=== PATIENT | male | born 1990 | race Caucasian/White ===

== ENCOUNTER 2017-09-23 12:58 | Emergency (ER) | payer SELFPAY ==
[~2017-09-23] VITALS: Ht 185.4 cm; Wt 97.5 kg
[~2017-09-23 12:58] MED LIST: AUGMENTIN 875-1 EACH PO; FISH OIL CONCEN1 SGL PO; MULTI VITAMINS1 TAB PO
[2017-09-23 13:14] VITALS: BP 131/76
--- NOTE | 2017-09-23 14:21 | RADIOLOGY REPORT ---
EXAMINATION: XR SHOULDER, LEFT CLINICAL INFORMATION: Pain and swelling x1 week. Evaluate for fracture or dislocation. COMPARISON: Chest radiograph 01/18/2007. TECHNIQUE: Three views of the left shoulder. FINDINGS: There is no acute fracture or dislocation. The glenohumeral joint and the acromioclavicular joint are intact. The acromiohumeral interval is maintained. Soft tissues are unremarkable. Visualized portions of the left upper hemithorax reveal no abnormal finding. IMPRESSION: Normal left shoulder radiographs.
--- NOTE | 2017-09-23 15:35 | ED GENERAL ADULT ---
History of Present Illness General Chief Complaint: Upper Extremity Injury Stated Complaint: LEFT SHOULDER PAIN Source: patient Exam Limitations: no limitations Vital Signs & Intake/Output Vital Signs & Intake/Output Vital Signs Date Time Temp Pulse Resp B/P B/P Pulse O2 O2 Flow FiO2 Mean Ox Delivery Rate 09/23 1314 98.5 108 16 131/76 98 Room Air ED Intake and Output 09/24 0000 09/23 1200 Intake Total Output Total Balance Patient 215 lb Weight Weight Reported by Patient Measurement Method Allergies Coded Allergies: NO KNOWN ALLERGIES (03/10/13) Reconcile Medications Amoxicillin/Potassium Clav (Augmentin 875-125 Tablet) 875 MG-125 MG TABLET 1 TAB PO BID PRN DOG BITE Methocarbamol (Robaxin-750) 750 MG TABLET 1 TAB PO TID PRN PAIN Multivitamin (One Daily Multivitamin) 1 TAB TAB 1 TAB PO DAILY SUPPLEMENT ( Reported) OMEGA-3 FATTY ACIDS (Fish Oil Concentrate) 1 SGL SGL 1 SGL PO DAILY SUPPLEMENT (Reported) Triage Note: 27 Y/O MALE C/O L SHOULDER PAIN X 1 WEEK; STATES HE HAD A MASSAGE TUESDAY AND HAS HAD SYMPTOMS SINCE. STATES SHOULDER FEELS "SWOLLEN" AND PT REPORTS DIFFICULTY LIFTING ARM OVER HEAD DUE TO PAIN - THOUGH STATES MOBILITY IS IMPROVED SINCE ONSET. HAS BEEN TAKING IBUPROPHEN 800MG WITH SOME RELIEF, LAST DOSE NOON. XRAY ORDERED PER MD. Triage Nurses Notes Reviewed? yes Onset: Abrupt Duration: week(s): (1), better, changing over time, continues in ED Timing: single episode today Injury Environment: home Severity: moderate, severe Severity Numbers: 8 No Modifying Factors: none HPI: 27-year-old male with a history of anxiety presents for evaluation of pain in his left shoulder. Patient states that he went to get a massage about one week ago for a "knot" in his left shoulder. Patient states that after the massage he noticed that the knot was becoming painful. The pain is located diffusely in the left shoulder radiates to the left neck and left upper back. The pain is much worse with movement. He states that initially he could barely move the shoulder due to pain. His range of motion has improved significantly since first started but the pain is persisting. He's been taking ibuprofen without much improvement. There was no direct trauma. Patient does know he goes to the gym regularly but has not been there in several weeks due to the knot in his shoulder. He denies numbness or tingling shortness of breath. No fever or hemoptysis elbow pain and wrist pain. (Graham Miramontes) Past History Travel History Traveled to [place] past 21 day No Medical History Any Pertinent Medical History? see below for history Neurological: NONE EENT: NONE Cardiovascular: NONE Respiratory: NONE Gastrointestinal: NONE Hepatic: NONE Renal: NONE Musculoskeletal: NONE Psychiatric: anxiety Endocrine: NONE Blood Disorders: NONE Cancer(s): NONE SENIOR JAVA ENGINEER/Reproductive: NONE Surgical History Surgical History: KNEE SURGERY 07 Psychosocial History What is your primary language Faroese Tobacco Use: Never used Family History Hx Contributory? No (Graham Miramontes) Review of Systems Review of Systems Constitutional: Reports: no symptoms. EENTM: Reports: no symptoms. Respiratory: Reports: no symptoms. Cardiovascular: Reports: no symptoms. GI: Reports: no symptoms. Genitourinary: Reports: no symptoms. Musculoskeletal: Reports: see HPI, back pain, joint pain, muscle pain, muscle stiffness, neck pain. Skin: Reports: no symptoms. Neurological/Psychological: Reports: no symptoms. Hematologic/Endocrine: Reports: no symptoms. Immunologic/Allergic: Reports: no symptoms. All Other Systems: Reviewed and Negative (Graham Miramontes) Physical Exam Physical Exam General Appearance: well developed/nourished, no apparent distress, alert, awake Head: atraumatic, normal appearance Eyes: Bilateral: normal appearance, PERRL, EOMI. Ears, Nose, Throat: hearing grossly normal Neck: normal inspection, supple, full range of motion, left-sided cervical paraspinous muscles tender to palpation no bruising swelling or abrasions the left trapezius muscles tender to palpation no midline tenderness no step-offs or deformities for range of motion of the neck is intact. There is pain in the left cervical paraspinous muscles with flexion of the neck Respiratory: normal breath sounds, no respiratory distress, lungs clear, left pectoralis major muscle is tender to palpation no bruising swelling or abrasions Cardiovascular: regular rate/rhythm, normal peripheral pulses Peripheral Pulses: 2+ radial (R), 2+ radial (L) Gastrointestinal: soft, non-tender Back: normal inspection, normal range of motion, there is tenderness to palpation over the superior aspect of the left scapula. No bruising swelling or abrasions no midline tenderness of the spine no CVA tenderness Extremities: normal inspection, no edema, range of motion of the left shoulder is reduced due to pain. There is tenderness to palpation of the anterior posterior deltoid and left trapezius muscle.there is no erythema swelling bruising. Full range of motion of the left elbow and left wrist neurovascular supply is intact the left upper extremity no other joint swelling or pain Neurologic/Psych: no motor/sensory deficits, awake, alert, oriented x 3, normal gait, normal mood/affect Skin: intact, normal color, warm/dry Lymphatic: no anterior cervical medina Core Measures ACS in differential dx? No CVA/TIA Diagnosis: No Sepsis Present: No Sepsis Focused Exam Completed? No (Yg ADAMS,Graham) Progress Differential Diagnoses I considered the following diagnoses in my evaluation of the patient: [Muscle strain, rotator cuff tendinitis, rotator cuff tear, cervical radiculopathy, fracture] Plan of Care: Orders Procedure Date/time Status Durable Medical Equipment 09/23 154 Active Patient seen and evaluated. He is here with left shoulder pain. The pain is very reproducible with range of motion and palpation. He does feel like his range of motion has improved since this first started. There is never any direct trauma. Neurovascular supply is intact. Vital signs are stable. X-rays negative for fracture or dislocation. Rest ice elevation compression. Patient was given a shoulder immobilizer but felt like the pain worsened with it intact. Continue ibuprofen 800 mg every 8 hours with food as needed for pain Tylenol can also be used. Robaxin as needed for pain. Follow-up with primary care doctor. Advised patient that he may need physical therapy or MRI for further evaluation discussed return precautions patient agrees the plan Diagnostic Imaging: Viewed by Me: Radiology Read. Discussed w/RAD: Radiology Read. Radiology Impression: PATIENT: SHIMON MARIEE PRESENT AGE: 27 PATIENT ACCOUNT NO: [id number] : 89 LOCATION: [facility] ORDERING PHYSICIAN: Leonardo Hansen DO SERVICE DATE: 09/23/17 EXAM TYPE: RAD - XRY-SHOULDER COMPLETE-LEFT EXAMINATION: XR SHOULDER, LEFT CLINICAL INFORMATION: Pain and swelling x1 week. Evaluate for fracture or dislocation. COMPARISON: Chest radiograph 01/18/2007. TECHNIQUE: Three views of the left shoulder. FINDINGS: There is no acute fracture or dislocation. The glenohumeral joint and the acromioclavicular joint are intact. The acromiohumeral interval is maintained. Soft tissues are unremarkable. Visualized portions of the left upper hemithorax reveal no abnormal finding. IMPRESSION: Normal left shoulder radiographs. DICTATED BY: Michael Adhikari MD DATE/TIME DICTATED:09/23/171416 PHARMACIST ASSISTANT:ALEXANDRU DATE/TIME TRANSCRIBED:09/23/171416 CONFIDENTIAL, DO NOT COPY WITHOUT APPROPRIATE AUTHORIZATION. <Electronically signed in Other Vendor System> SIGNED BY: Michael Adhikari MD 09/23/171420 Initial ED EKG: none (Graham Miramontes) Departure Departure Disposition: HOME OR SELF CARE Condition: Stable Clinical Impression Primary Impression: Muscle strain of left shoulder Qualifiers: Encounter type: initial encounter Qualified Code: S46.912A - Strain of unspecified muscle, fascia and tendon at shoulder and upper arm level, left arm, initial encounter Referrals: Jacqueline Hutchison (PCP/Family) Additional Instructions: Rest, avoid heavy lifting bending or excessive physical activity. Ibuprofen 800 mg every 8 hours with food as needed for pain. You can also take Tylenol 1000 mg every 6 hours as needed. Robaxin is a muscle relaxer that can be used every 8 hours as needed for pain this may cause drowsiness. YOU can apply ice or heat for 15-20 minutes every few hours. If your pain continues to persist and get worse you may need an MRI or physical therapy of your shoulder. He should make a follow-up with YOUr primary care doctor within next few days for a recheck and to review all results of today's visit. If you have any concerns return immediately. Departure Forms: Customer Survey General Discharge Information Prescriptions: Current Visit Scripts Methocarbamol (Robaxin-750) 1 TAB PO TID PRN PAIN #30 TAB (Graham Miramontes) PA/CAREER DEVELOPER Co-Sign Statement Statement: ED Attending supervision documentation- [] I saw and evaluated the patient. I have also reviewed all the pertinent lab results and diagnostic results. I agree with the findings and the plan of care as documented in the PA's/CAREER DEVELOPER's documentation. [X] I have reviewed the ED Record and agree with the PA's/CAREER DEVELOPER's documentation. [] Additions or exceptions (if any) to the PAs/CAREER DEVELOPER's note and plan are summarized below: [] (Leonardo Hansen DO) Critical Care Note Critical Care Note Critical Care Time: non-applicable (Graham Miramontes)
[2017-09-23] MEDS ORDERED: ROBAXIN-750750 M1 PO (15:46)
== END 2017-09-23 16:02 ==
LOC: ERH 12:58
DX: S46.912A Strain of unspecified muscle, fascia and tendon at shoulder and upper arm level, left arm, initial encounter (principal); X58.XXXA Exposure to other specified factors, initial encounter; Y93.89 Activity, other specified; Y92.009 Unspecified place in unspecified non-institutional (private) residence as the place of occurrence of the external cause
CPT/HCPCS: 73030-LT